=== PATIENT | female | born 1990 | race African-American/Black ===

== ENCOUNTER 2016-09-12 19:14 | Emergency (ER) | payer SELFPAY | END 2016-09-12 22:15 | disposition left against medical advice (07) | LOC: ER 19:14 | DX: Z53.21 Procedure and treatment not carried out due to patient leaving prior to being seen by health care provider (principal) ==

== ENCOUNTER 2016-09-18 12:18 | Emergency (ER) | payer MEDICAID ==
--- NOTE | 2016-09-18 13:19 | ER Document Report ---
ED Medical Screen (RME) - General Chief Complaint: Vag Bleeding, +preg <12wks Stated Complaint: CRAMPING Time Seen by Provider: 09/18/16 13:16 Notes: pt states she has been having intermittent vaginal spotting and abdominal cramping for the last month. Spotting is brownish red colored. Pt is currently , LMP 4-5-17. Also having vaginal discharge in between spotting. No fever. Has not been to OB yet, waiting on insurance. Pt states pain is lower mid abdomen radiating to left side. Denies dysuria. TRAVEL OUTSIDE OF THE [place] IN LAST 30 DAYS: No - Related Data Allergies/Adverse Reactions: No Known Allergies Allergy (Verified 09/18/16 12:21) Past Medical History - Past Medical History Cardiac Medical History: Reports: Hx Hypertension Renal/ Medical History: Denies: Hx Peritoneal Dialysis Past Surgical History: Reports: Hx Section - Immunizations Immunizations up to date: Yes Hx Diphtheria, Pertussis, Tetanus Vaccination: Yes Physical Exam - Vital signs Vitals: Temp Pulse Resp BP Pulse Ox 97.9 F 92 16 119/60 100 09/18/16 12:26 09/18/16 12:26 09/18/16 12:26 09/18/16 12:26 09/18/16 12:26 Course - Vital Signs Vital signs: Temp Pulse Resp BP Pulse Ox 97.9 F 92 16 119/60 100 09/18/16 12:26 09/18/16 12:26 09/18/16 12:26 09/18/16 12:26 09/18/16 12:26
[2016-09-18 13:54] LABS: ABSOLUTE EOSINOPHILS # (AUTO) 0.1 10^3/uL (0.0-0.6); ABSOLUTE LYMPHOCYTES (AUTO) 1.5 10^3/uL (0.5-4.7); ABSOLUTE MONOCYTES (AUTO) 0.3 10^3/uL (0.1-1.4); ABSOLUTE NEUT (AUTO) 4.8 10^3/uL (1.7-8.2); BASOPHILS % (AUTO) 0.6 % (0-2); EOSINOPHILS % (AUTO) 1.9 % (0-6); HEMATOCRIT 39.2 % (36.0-47.0); HEMOGLOBIN 13.1 g/dL (12.0-15.5); HGB HCT DIFFERENCE 0.1; LYMPHOCYTES % (AUTO) 22.5 % (13-45); MEAN CORPUSCULAR HEMOGLOBIN 33.1 pg (27.0-33.4); MEAN CORPUSCULAR HGB CONC 33.4 g/dL (32.0-36.0); MEAN CORPUSCULAR VOLUME 99 fl (80-97); RED BLOOD COUNT 3.95 10^6/uL (3.72-5.28); RED CELL DISTRIBUTION WIDTH 13.5 % (11.5-14.0); WHITE BLOOD COUNT 6.8 10^3/uL (4.0-10.5)
[2016-09-18 14:12] LABS: ALANINE AMINOTRANSFERASE 25 U/L (9-52); ALBUMIN 4.5 g/dL (3.5-5.0); ALKALINE PHOSPHATASE 57 U/L (38-126); ANION GAP 11 (5-19); ASPARTATE AMINO TRANSFERASE 21 U/L (14-36); BILIRUBIN,DIRECT 0.3 mg/dL (0.0-0.4); BILIRUBIN,TOTAL 0.5 mg/dL (0.2-1.3); BLOOD UREA NITROGEN 14 mg/dL (7-20); CALCIUM 10.2 mg/dL (8.4-10.2); CARBON DIOXIDE 23 mmol/L (22-30); CHLORIDE 103 mmol/L (98-107); CREATININE RESULT 0.67 mg/dL (0.52-1.25); GLUCOSE 75 mg/dL (75-110); POTASSIUM 4.9 mmol/L (3.6-5.0); SODIUM 136.9 mmol/L (137-145); TOTAL PROTEIN 7.5 g/dL (6.3-8.2)
[2016-09-18 14:17] LABS: APPEARANCE,URINE CLEAR; BILIRUBIN,URINE NEGATIVE (NEGATIVE); GLUCOSE, URINE NEGATIVE (NEGATIVE); KETONES,URINE NEGATIVE (NEGATIVE); LEUKOCYTE ESTERASE,URINE NEGATIVE (NEGATIVE); NITRITE,URINE NEGATIVE (NEGATIVE); PROTEIN,URINE NEGATIVE (NEGATIVE); URINE SPECIFIC GRAVITY 1.009; UROBILINOGEN,URINE NEGATIVE mg/dL (<2.0)
--- NOTE | 2016-09-18 15:07 | RADIOLOGY REPORT (SQ) ---
EXAM DESCRIPTION: U/S OB TRANSVAGINAL W/O DOP COMPLETED DATE/TIME: 09/18/2016 2:51 pm REASON FOR STUDY: + preg vag bleed COMPARISON: None. TECHNIQUE: Transvaginal static and realtime grayscale images acquired of the pelvis. Additional ashly cted spectral and color Doppler images recorded. All images stored on PACs. bHCG: Not available LIMITATIONS: None. FINDINGS: FETUS: Living intrauterine . EGA: 6 weeks 5 days AKASH: 05/09/2017 FHR: 126 beats per minute. SUBCHORIONIC BLEED: Yes SIZE OF BLEED: Small UTERUS: No masses. No anomalies. CERVICAL LENGTH: 3.1 cm Closed. RIGHT ADNEXA: Right ovary was not visualized. No adnexal free fluid. No adnexal masses. LEFT ADNEXA: Left ovary was not visualized. Small amount of free fluid is identified in the posterior cul-de-sac on the left No adnexal masses. FREE FLUID: Small amount of free fluid on the left OTHER: No other significant finding. IMPRESSION: LIVING INTRAUTERINE . EGA 6 weeks 5 days Trimester of : First - 0 to 13 weeks. TECHNICAL DOCUMENTATION: JOB ID: [id number] [employer]- All Rights Reserved
--- NOTE | 2016-09-18 15:34 | ER Document Report ---
ED General - General Chief Complaint: Vag Bleeding, +preg <12wks Stated Complaint: CRAMPING Time Seen by Provider: 09/18/16 13:16 Mode of Arrival: Ambulatory Information source: Patient Notes: 25-year-old female 2 para 1 who is approximately 2-3 weeks based on last measure. Presents with complaints of intermittent spotting. Patient denies any fevers or chills nausea vomiting or diarrhea patient is taking TRAVEL OUTSIDE OF THE [place] IN LAST 30 DAYS: No - HPI Onset: Last week Onset/Duration: Intermittent Quality of pain: Cramping Severity: Mild Pain Level: 1 Associated symptoms: None Exacerbated by: Denies Relieved by: Denies Similar symptoms previously: No Recently seen / treated by doctor: No - Related Data Allergies/Adverse Reactions: No Known Allergies Allergy (Verified 09/18/16 12:21) Past Medical History - General Last Menstrual Period: July - Social History Smoking Status: Never Smoker Cigarette use (# per day): No Chew tobacco use (# tins/day): No Smoking Education Provided: No Family History: Reviewed & Not Pertinent Patient has suicidal ideation: No Patient has homicidal ideation: No - Past Medical History Cardiac Medical History: Reports: Hx Hypertension Renal/ Medical History: Denies: Hx Peritoneal Dialysis Past Surgical History: Reports: Hx Section - Immunizations Immunizations up to date: Yes Hx Diphtheria, Pertussis, Tetanus Vaccination: Yes Review of Systems - Review of Systems Notes: PHYSICAL EXAMINATION: GENERAL: Well-appearing, well-nourished and in no acute distress. HEAD: Atraumatic, normocephalic. EYES: Pupils equal round and reactive to light, extraocular movements intact, conjunctiva are normal. ENT: Nares patent, oropharynx clear without exudates. Moist mucous membranes. NECK: Normal range of motion, supple without lymphadenopathy LUNGS: Breath sounds clear to auscultation bilaterally and equal. No wheezes rales or rhonchi. HEART: Regular rate and rhythm without murmurs ABDOMEN: Soft, nontender, nondistended abdomen. No guarding, no rebound. No masses appreciated. Female : deferred Musculoskeletal: Normal range of motion, no pitting or edema. No cyanosis. NEUROLOGICAL: Cranial nerves grossly intact. Normal speech, normal gait. Normal sensory, motor exams PSYCH: Normal mood, normal affect. SKIN: Warm, Dry, normal turgor, no rashes or lesions noted. Physical Exam - Vital signs Vitals: Temp Pulse Resp BP Pulse Ox 97.9 F 92 16 119/60 100 09/18/16 12:26 09/18/16 12:09/18/16 12:09/18/16 12:09/18/16 12:26 Course - Re-evaluation Re-evalutation: 09/18/16 15:45 Ultrasound noted a viable intrauterine , report was given to patient. Her blood type is O+. Otherwise patient looks well will be discharged to follow -up with CHANNEL DIRECTOR After performing a Medical Screening Examination, I estimate there is LOW risk for ACUTE APPENDICITIS, BOWEL OBSTRUCTION, ACUTE CHOLECYSTITIS, PERFORATED DIVERTICULITIS, INCARCERATED HERNIA, PANCREATITIS, PELVIC INFLAMMATORY DISEASE, PERFORATED ULCER, ECTOPIC , or TUBO-OVARIAN ABSCESS, thus I consider the discharge disposition reasonable. Also, there is no evidence or peritonitis , sepsis, or toxicity. I have reevaluated this patient multiple times and no significant life threatening changes are noted. The patient and I have discussed the diagnosis and risks, and we agree with discharging home with close follow-up with the understanding that symptoms and presentations can change. We also discussed returning to the Emergency Department immediately if new or worsening symptoms occur. We have discussed the symptoms which are most concerning (e.g., bloody stool, fever, changing or worsening pain, vomiting) that necessitate immediate return. - Vital Signs Vital signs: Temp Pulse Resp BP Pulse Ox 97.9 F 92 16 119/60 100 09/18/16 12:26 09/18/16 12:26 09/18/16 12:09/18/16 12:09/18/16 12:26 - Laboratory Result Diagrams: 09/18/16 13:32 09/18/16 13:32 Laboratory results interpreted by me: 09/18/16 09/18/16 13:32 13:32 MCV 99 H Sodium 136.9 L Beta HCG, Quant 43952.00 H - Diagnostic Test Radiology reviewed: Image reviewed, Reports reviewed - Intrauterine Discharge - Discharge Clinical Impression: Bleeding in early , Threatened miscarriage in early Condition: Stable Disposition: HOME, SELF-CARE Instructions: Threatened Miscarriage ([facility]) Prescriptions: Promethazine HCl [Phenergan 25 mg Tablet] 1 - 2 tab PO Q6H PRN #15 tablet PRN Reason: Referrals: [facility] [Provider Group] - Follow up in 3-5 days
[2016-09-18 16:27] VITALS: BP 111/65
== END 2016-09-18 16:19 | disposition home or self-care (01) ==
LOC: ER 12:18
DX: O20.0 Threatened abortion (principal); O16.9 Unspecified maternal hypertension, unspecified trimester; Z3A.00 Weeks of gestation of pregnancy not specified; Z79.899 Other long term (current) drug therapy
CPT/HCPCS: 36415; 76817; 80053; 81001; 84702; 85025; 86900; 86901; 99284

== ENCOUNTER 2017-02-09 11:17 | Outpatient (CLI) | payer MEDICAID ==
[2017-02-09 12:00] LABS: AMORPHOUS SEDIMENT,URINE TRACE /HPF; APPEARANCE,URINE CLEAR; BILIRUBIN,URINE NEGATIVE (NEGATIVE); GLUCOSE, URINE NEGATIVE (NEGATIVE); KETONES,URINE NEGATIVE (NEGATIVE); LEUKOCYTE ESTERASE,URINE NEGATIVE (NEGATIVE); NITRITE,URINE NEGATIVE (NEGATIVE); PROTEIN,URINE NEGATIVE (NEGATIVE); URINE SPECIFIC GRAVITY 1.008; UROBILINOGEN,URINE NEGATIVE mg/dL (<2.0)
[2017-02-09 12:07] LABS: URINE BARBITURATES SCREEN NEGATIVE; URINE METHADONE SCREEN NEGATIVE; URINE OPIATES LOW NEGATIVE; URINE PHENCYCLIDINE SCREEN NEGATIVE
== END 2017-02-09 14:19 | disposition home or self-care (01) ==
LOC: LC 11:17
PROVIDERS: ATTEND Obstetrics & Gynecology
PROC: 4A1HXCZ Monitoring of Products of Conception, Cardiac Rate, External Approach (ICD-10-PCS; principal; 2017-02-09)
DX: Z34.92 Encounter for supervision of normal pregnancy, unspecified, second trimester (principal); Z36.89 Encounter for other specified antenatal screening; Z3A.27 27 weeks gestation of pregnancy
CPT/HCPCS: 80307; 81001; 87210

== ENCOUNTER 2017-04-13 17:02 | Outpatient (CLI) | payer MEDICAID ==
[2017-04-13 18:11] LABS: APPEARANCE,URINE CLEAR; BILIRUBIN,URINE NEGATIVE (NEGATIVE); GLUCOSE, URINE NEGATIVE (NEGATIVE); KETONES,URINE NEGATIVE (NEGATIVE); LEUKOCYTE ESTERASE,URINE NEGATIVE (NEGATIVE); NITRITE,URINE NEGATIVE (NEGATIVE); PROTEIN,URINE NEGATIVE (NEGATIVE); URINE SPECIFIC GRAVITY 1.009; UROBILINOGEN,URINE NEGATIVE mg/dL (<2.0)
[2017-04-13 18:15] LABS: AMNISURE (ROM) NEGATIVE (NEGATIVE)
[2017-04-13 18:27] LABS: URINE BARBITURATES SCREEN NEGATIVE; URINE METHADONE SCREEN NEGATIVE; URINE OPIATES LOW NEGATIVE; URINE PHENCYCLIDINE SCREEN NEGATIVE
--- NOTE | 2017-04-13 20:54 | RADIOLOGY REPORT (SQ) ---
EXAM DESCRIPTION: U/S PROFILE W/O STRESS COMPLETED DATE/TIME: 04/13/2017 8:43 pm REASON FOR STUDY: assess for reassuring status COMPARISON: None. TECHNIQUE: Limited guajardo-scale realtime and static images of the fetus to measure specified parameter s. LIMITATIONS: None. FINDINGS: HEART RATE: 145 beats per minute. AGA: 8.5 cm. BREATHING MOVEMENT: 0 points. MOVEMENT: 2 points. POSTURE AND TONE: 2 points. QUALITATIVE AGA: 2 points. OTHER: No other significant finding. IMPRESSION: BIOPHYSICAL PROFILE: 10/04 Trimester of : Third - 28 weeks to delivery COMMENT: BREATHING MOVEMENTS: 2 POINTS: PRESENT 0 POINTS: ABSENT MOTION: 2 POINTS: PRESENT 0 POINTS: ABSENT TONE: 2 POINTS: PRESENT 0 POINTS: ABSENT AMNIOTIC FLUID VOLUME: 2 POINTS: LARGEST POCKET GREATER THAN 2 CM DEPTH. 0 POINTS: NO POCKET OF 2 CM. TECHNICAL DOCUMENTATION: JOB ID: [id number] [employer]- All Rights Reserved
--- NOTE | 2017-04-13 21:18 | Non Stress Test Report ---
Non Stress Test Datetime Report Generated by CPN: 04/13/2017 21:17 DEMOGRAPHIC EGA NST: 36.3 INDICATION Indication for Study: Ordered by Provider MONITORING Monitor Explained: Monitor Explained; Test Explained; Patient Verbalized Understanding Time on Monitor: 04/13/2017 19:10 Time off Monitor: 04/13/2017 19:30 NST Duration: 20 NST INTERVENTIONS NST Interventions: PO Hydration; Reposition Patient Physician Notified NST: Dr. Montejo-Aden BABY A: [id number] BABY A Movement : Present Contraction Frequency : irregular FHR Baseline : 130 Accelerations : 15X15 Decelerations : None Variability : Moderate 6-25bpm NST Review: Meets Criteria for Reactive NST NST Review and Verified By : JUAN Mancera Results: Reactive NST REPORT Report Trigger: Send Report
== END 2017-04-13 21:17 | disposition home or self-care (01) ==
LOC: LC 17:02
PROVIDERS: ATTEND Obstetrics & Gynecology
PROC: 4A1HXCZ Monitoring of Products of Conception, Cardiac Rate, External Approach (ICD-10-PCS; principal; 2017-04-13)
DX: O47.03 False labor before 37 completed weeks of gestation, third trimester (principal); Z3A.36 36 weeks gestation of pregnancy
CPT/HCPCS: 59025; 76819; 80307; 81001; 84112

== ENCOUNTER 2017-04-25 10:44 | Inpatient (IN) | payer MEDICAID ==
[2017-04-25 11:20] LABS: APPEARANCE,URINE CLEAR; BILIRUBIN,URINE NEGATIVE (NEGATIVE); COLOR,URINE YELLOW; GLUCOSE, URINE NEGATIVE (NEGATIVE); KETONES,URINE NEGATIVE (NEGATIVE); LEUKOCYTE ESTERASE,URINE NEGATIVE (NEGATIVE); NITRITE,URINE NEGATIVE (NEGATIVE); PROTEIN,URINE NEGATIVE (NEGATIVE); URINE SPECIFIC GRAVITY 1.008; UROBILINOGEN,URINE NEGATIVE mg/dL (<2.0)
[2017-04-25 11:32] LABS: ABSOLUTE EOSINOPHILS # (AUTO) 0.2 10^3/uL (0.0-0.6); ABSOLUTE LYMPHOCYTES (AUTO) 1.6 10^3/uL (0.5-4.7); ABSOLUTE MONOCYTES (AUTO) 0.5 10^3/uL (0.1-1.4); BASOPHILS % (AUTO) 0.5 % (0-2); EOSINOPHILS % (AUTO) 2.6 % (0-6); HEMATOCRIT 29.3 % (36.0-47.0); HEMOGLOBIN 9.8 g/dL (12.0-15.5); LYMPHOCYTES % (AUTO) 21.7 % (13-45); MEAN CORPUSCULAR HEMOGLOBIN 30.4 pg (27.0-33.4); MEAN CORPUSCULAR HGB CONC 33.5 g/dL (32.0-36.0); MEAN CORPUSCULAR VOLUME 91 fl (80-97); MONOCYTES % (AUTO) 6.9 % (3-13); PLATELET COUNT 220 10^3/uL (150-450); RED BLOOD COUNT 3.22 10^6/uL (3.72-5.28); RED CELL DISTRIBUTION WIDTH 15.1 % (11.5-14.0); SEGMENTED NEUTROPHILS % (AUTO) 68.3 % (42-78); TOTAL CELLS COUNTED % (AUTO) 100 %; WHITE BLOOD COUNT 7.4 10^3/uL (4.0-10.5)
[2017-04-25 11:35] LABS: URINE AMPHETAMINES SCREEN NEGATIVE; URINE BARBITURATES SCREEN NEGATIVE; URINE BENZODIAZEPINES SCREEN NEGATIVE; URINE COCAINE SCREEN NEGATIVE; URINE MARIJUANA (THC) SCREEN NEGATIVE; URINE METHADONE SCREEN NEGATIVE; URINE PHENCYCLIDINE SCREEN NEGATIVE
[2017-04-25 11:36] LABS: UR PRO/CREAT RATIO RESULT 0.1 mg/mg (0.0-0.2); URINE CREATININE 103.5 mg/dL (16-327); URINE PROTEIN 10.8 mg/dL (<12)
[2017-04-25 11:54] LABS: ALANINE AMINOTRANSFERASE 25 U/L (9-52); ALBUMIN 3.1 g/dL (3.5-5.0); ALKALINE PHOSPHATASE 157 U/L (38-126); ANION GAP 7 (5-19); ASPARTATE AMINO TRANSFERASE 25 U/L (14-36); BILIRUBIN,DIRECT 0.1 mg/dL (0.0-0.4); BILIRUBIN,TOTAL 0.3 mg/dL (0.2-1.3); BLOOD UREA NITROGEN 3 mg/dL (7-20); CALCIUM 9.4 mg/dL (8.4-10.2); CARBON DIOXIDE 22 mmol/L (22-30); CHLORIDE 110 mmol/L (98-107); GLUCOSE 80 mg/dL (75-110); LDH 430 U/L (313-618); POTASSIUM 3.8 mmol/L (3.6-5.0); TOTAL PROTEIN 5.6 g/dL (6.3-8.2); URIC ACID 5.3 mg/dL (2.5-6.2)
[2017-04-25] MEDS ORDERED: RINGERS SOLUTION,LACTATED 1,000 ML IV ONE (14:00)
[2017-04-25] MEDS ORDERED: RINGERS SOLUTION,LACTATED 1,000 ML IV PRN ×2 (14:00→19:22)
[2017-04-25] MEDS ORDERED: CEFAZOLIN SODIUM 2 GM in DEXTROSE 5%-WATER 50 ML IV PRN (14:53)
[2017-04-25] MEDS ORDERED: CEFAZOLIN 1 GM/D5W RTU 2 GM/100 ML RTUPB IV ONE (15:08)
[2017-04-25] MEDS ORDERED: CITRIC ACID/SODIUM CITRATE ORAL SOLN 15 ML UDCUP ONE (15:08)
[2017-04-25] MEDS ORDERED: CEFAZOLIN INJ 1 GM VIAL ONE (17:50)
[2017-04-25] MEDS ORDERED: OXYTOCIN 10 UNIT/ML VIAL ONE (18:12)
[2017-04-25] MEDS ORDERED: OXYTOCIN/NORMAL SALINE 20 UNIT/1,000 ML RTUINJ ONE (18:13)
[2017-04-25] MEDS ORDERED: EPHEDRINE SULFATE INJ 50 MG/1 ML AMPULE ONE (18:13)
[2017-04-25] MEDS ORDERED: METHYLERGONOVINE MALEATE INJ/PF 0.2 MG/1 ML AMPULE ONE (18:13)
[2017-04-25] MEDS ORDERED: MORPHINE SULFATE 10 MG/ML INJ IV PRN (18:38)
[2017-04-25] MEDS ORDERED: FENTANYL CITRATE INJ/PF 100 MCG/2 ML AMPUL IV PRN ×3 (18:38)
[2017-04-25] MEDS ORDERED: ONDANSETRON HCL INJ/PF 4 MG/2 ML SDV IV PRN (18:38)
[2017-04-25] MEDS ORDERED: MEPERIDINE HCL/PF INJ 25 MG/1 ML DISP.SYRIN IV PRN (18:38)
[2017-04-25] MEDS ORDERED: OXYCODONE-ACETAMINOPHEN 5-325 MG TABLET PO PRN ×3 (18:38→19:22)
[2017-04-25] MEDS ORDERED: PROMETHAZINE HCL INJ 25 MG/1 ML VIAL IV PRN ×2 (18:38)
[2017-04-25] MEDS ORDERED: DIPHENHYDRAMINE HCL 50 MG/ML VIAL IV PRN (18:38)
[2017-04-25] MEDS ORDERED: MIDAZOLAM 2 MG/2 ML INJ ONE (18:41)
[2017-04-25] MEDS ORDERED: KETOROLAC TROMETHAMINE 60 MG/2 ML SDV ONE (18:48)
[2017-04-25] MEDS ORDERED: DIPH/PERTUSS(ACELL)/TETANUS VAC/PF 0.5 ML SYR (>=10YO) IM PRN (19:22)
[2017-04-25] MEDS ORDERED: ACETAMINOPHEN 325 MG TABLET PO PRN (19:22)
[2017-04-25] MEDS ORDERED: ACETAMINOPHEN 100 ML IV PRN (19:22)
[2017-04-25] MEDS ORDERED: OXYTOCIN/NORMAL SALINE 20 UNIT/1,000 ML RTUINJ IV PRN (19:22)
[2017-04-25] MEDS ORDERED: HYDROMORPHONE HCL INJ/PF 2 MG/ML AMPULE IV PRN (19:22)
[2017-04-25] MEDS ORDERED: SIMETHICONE 80 MG TAB.CHEW PO PRN (19:22)
[2017-04-25] MEDS ORDERED: MEASLES,MUMPS&RUBELLA VACC/PF 0.5 ML VIAL SUBCUT PRN (19:22)
--- NOTE | 2017-04-25 19:32 | Operative Report ---
Operative Report DATE OF SURGERY: 04/25/17 PREOPERATIVE DIAGNOSIS: Mild preeclampsia repeat section and desires tubal ligation POSTOPERATIVE DIAGNOSIS: Same OPERATION: Repeat via low transverse uterine incision and bilateral tubal ligation with Filshie clips SURGEON: MICHELE PALACIOS ANESTHESIA: Spinal TISSUE REMOVED OR ALTERED: Placenta COMPLICATIONS: None ESTIMATED BLOOD LOSS: 250 cc INTRAOPERATIVE FINDINGS: Viable female Apgars 8 9 weight 7 pounds PROCEDURE: Patient was taken to the OR and placed in supine position after her spinal anesthesia. She is prepared and draped in sterile fashion. Alvarez was placed for drainage of the bladder. Low transverse incision was made and carried down the level of the fascia. The fascial incision was made with knife and extended bilaterally with curved Gonzalez scissors. The fascia was off the rectus muscles using sharp and blunt dissection. The rectus muscles are in the midline. The peritoneum was entered without incident. Bladder blade was placed in uterine segment was identified. A low transverse incision was made creating a bladder flap. Bladder blade was placed low transverse uterine incision was made with the c safe knife and extended with fingertips. The baby was delivered with some fundal pressure. Mouth and nose were suctioned free. The cord is doubly clamped and cut. Baby is passed off to the kickboxing instructor in attendance. The placenta was manually extracted with trailing membranes. The uterus was adhesed to the anterior abdominal wall and the dense adhesions were lysed allowing the uterus to be brought out of the abdomen. The uterus was externalized wrapped in a moist lap sponge. Uterine contents wiped free. Uterus was closed with a running locking layer of 0 chromic suture using the second layer to imbricate the first completing a double layer closure of the uterus. The serosa was closed with a running 2-0 chromic stitch. Filshie clips were placed across the mid isthmic portion of each fallopian tube bilaterally after first following them out to their fimbriated ends. The thin tubal adhesions were also lysed with Metzenbaum scissors. The uterus was replaced into the abdomen. The abdominal wall peritoneum was closed with a 2-0 chromic stitch in a running fashion. Fascia was closed with a running 0 Vicryl in 2 segments. Ally's layer was brought together with 0 plain gut stitch and the skin was closed with running subcuticular 4-0 undyed Vicryl stitch. The wound was dressed mother and baby did well.
[2017-04-25] MEDS ORDERED: FENTANYL CITRATE INJ/PF 100 MCG/2 ML AMPUL ONE (19:36)
[2017-04-25] MEDS ORDERED: ACETAMINOPHEN 100 ML IV ONE (20:06)
[2017-04-25] MEDS ORDERED: ONDANSETRON HCL INJ/PF 4 MG/2 ML SDV ONE (20:24)
[2017-04-25] MEDS ORDERED: HYDROMORPHONE HCL INJ/PF 2 MG/ML AMPULE ONE ×2 (21:16→21:18)
[2017-04-25] MEDS ORDERED: LABETALOL HCL 200 MG TABLET ONE (21:28)
--- NOTE | 2017-04-25 21:45 | Delivery Summary ---
Del Sum A-C Datetime Report Generated by CPN: 04/25/2017 21:44 DELIVERY PERSONNEL DELIVERY PERSONNEL: [id number] Delivery Doctor:: Macrina William MD Anesthesiologist:: Nino Quevedo MD JAVA FLEX DEVELOPER:: Nataliia HUGHES CRNA Labor and Delivery Nurse:: Sheri Swartz RNtechnical publications writer Nurse:: Nimisha Kelly RN Proposal Specialist:: Dr. David Suntal Nursery Nurse:: Pat Gonzáles RN Modeling Manager/GLASS FURNACE OPERATOR: ST Gustavo Modeling Manager/GLASS FURNACE OPERATOR: Pat Og, NIGHT COORDINATOR MATERNAL INFORMATION Delivery Anesthesia: Spinal Medications After Delivery: Pitocin Bolus-Please Comment; Pitocin Drip 20 Units/1000ml NSS Maternal Complications: None LABOR SUMMARY EDC: 05/08/2017 00:00 No. Babies in Womb: 1 Attempted: No Labor Anesthesia: None LABOR INFORMATION Reason for Induction: Not Applicable Oxytocin: N/A Group B Beta Strep: NEGATIVE Antibiotics # of Doses: 0 Steroids Given: None Reason Steroids Not Administered: Not Applicable MEMBRANES Membranes Rupture Method: Artificial Rupture of Membranes: 04/25/2017 18:35 Length of Rupture (hr): 0.02 Amniotic Fluid Color: Clear Amniotic Fluid Amount: Small Amniotic Fluid Odor: Normal STAGES OF LABOR Stage 3 hr: 0 Stage 3 min: 1 VAGINAL DELIVERY Episiotomy: None Laceration #1: None Laceration Extension #1: N/A Laceration Repair: Not Applicable CSECTION DELIVERY Primary Indication: Repeat Elective Other Primary Indication: GHTN CSection Urgency: Non-Scheduled CSection Incidence: Repeat Labor: No Labor Elective: Nonelective CSection Incision: Lower Uterine Transverse BABY A INFORMATION Infant Delivery Date/Time: 04/25/2017 18:36 Method of Delivery: Born in Route : No : N/A Forceps: N/A Vacuum Extraction: N/A Shoulder Dystocia : No PRESENTATION/POSITION BABY A Presentation: Cephalic Cephalic Presentation: Vertex Breech Presentation: N/A PLACENTA INFORMATION BABY A Placenta Delivery Time : 04/25/2017 18:37 Placenta Method of Delivery: Manual Removal Placenta Status: Delivered SCORES BABY A Heart Rate 1 min: >100 bpm Resp Effort 1 min: Good Cry Reflex Irritability 1 min: Cough or Sneeze or Pulls Away Muscle Tone 1 min: Active Motion Color 1 min: Blue/Pale SCORE 1 MIN: 8 Heart Rate 5 min: >100 bpm Resp Effort 5 min: Good Cry Reflex Irritability 5 min: Cough or Sneeze or Pulls Away Muscle Tone 5 min: Active Motion Color 5 min: Body [place], Extremities Blue SCORE 5 MIN: 9 INFANT INFORMATION BABY A Gestational Age at Delivery: 38.1 Gestational Status: Early Term- 37- 38.6 Weeks Outcome : Liveborn Infant Condition : Stable Infant Sex: Female IDENTIFICATION BABY A Verification Date/Time: 04/25/2017 18:37 ID Band Number: [id number] Mother's Name Verified: Yes RN Verifying : A Kelly RN N Swartz RN WEIGHT/LENGTH BABY A Infant Birthweight (gm): 3175 Infant Weight (lb): 7 Weight (oz): 0 Infant Length (in): 19.00 Infant Length (cm): 48.26 CORD INFORMATION BABY A No. Cord Vessels: 3 Nuchal Cord : N/A Cord Blood Taken: Yes-For Eval (Mom's Blood Type - or O+) ASSESSMENT BABY A Infant Complications: None Skin to Skin: No BABY B INFORMATION : N/A SIGNATURES : I was personally available for consultation and serving as supervising physician for the MLP.
--- NOTE | 2017-04-25 22:00 | Admission Physical ---
Datetime Report Generated by CPN: 04/25/2017 21:59 CURRENT ADMISSION Chief Complaint: Sent from OB Office for Evaluation and Treatment - Please Specify Chief Complaint Other: elevated BP Indication for Induction: Not Applicable Indication for Induction: Term, Intrauterine Admit Impression- Other: hypertension with severe range BP at office today Admit Plan: Admit to Unit; Initiate Section Protocol ALLERGIES Medication Allergies: No Medication Allergies: No Known Allergies (04/25/2017) Medication Allergies: No Known Allergies (02/09/2017) Medication Allergies: No Known Allergies (09/18/2016) Latex: No Latex Allergies Food Allergies: None Environmental Allergies: None OBSTETRICAL HISTORY EDC: 05/08/2017 00:00 : 2 Para: 1 Term: 1 : 0 SAB: 0 IAB: 0 Ectopic: 0 Livin Cesareans: 0 VBACs: 0 Multiple Births: 0 Gestational Diabetes: No Rh Sensitization: No Incompetent Cervix: No KORI: No Infertility: No ART Treatment: No Uterine Anomaly: No IUGR: No Hx Previous C/S: No Macrosomia: No Hx Loss/Stillborn: No PIH: Yes Placenta Previa/Abruption: No Depression/PP Depression: No PTL/PROM: No Post Hemorrhage: No Current Procedures: Ultrasound Obstetrical History Comments: G1- 2014 high blood pressure, primary c/s due to unreassuring FHT G2- Current SEE RECORDS Alcohol: No Marijuana : No Cocaine: No Other Illicit Drugs: No Cigarettes: Never Smoker. [id number] MEDICAL HISTORY Diabetes: No Blood Transfusion: No Pulmonary Disease (Asthma, TB): No Breast Disease: No Hypertension: No Esl Tutor Surgery: Yes Heart Disease: No Hosp/Surgery: Yes Autoimmune Disorder: No Anesthetic Complications: No Kidney Disease: No Abnormal Pap Smear: Yes Neuro/Epilepsy: No Psychiatric Disorders: No Other Medical Diseases: No Hepatitis/Liver Disease: No Significant Family History: No Varicosities/Phlebitis: No Trauma/Violence : No Thyroid Dysfunction: No Medical History Comments: Prior c/s 2014 HPV INFECTIOUS HISTORY Gonorrhea: No Genital Herpes: No Chlamydia: Yes Tuberculosis: No Syphilis: No Hepatitis: No HIV/AIDS Exposure: No Rash or Viral Illness: No HPV: Yes Infectious History Comments: 2013 Chlamydia 2013 HPV PHYSICAL EXAM General: Normal HEENT: Normal Neurologic: Normal Thyroid: Deferred Heart: Normal Lungs: Normal Breast: Deferred Back: Normal Abdomen: Normal Genitourinary Exam: Deferred Extremities: Normal DTRs: Deferred Pelvic Type: Not Done Vital Signs: Reviewed Details Vital Signs: hypertension with intermittent severe range BPs VAGINAL EXAM Dilatation: ft Contraction Comments: irreg FETUS A EGA: 38.1 Monitoring: External US FHR- Baseline: 135 Variability: Minimal - Undetectable to <=5bpm Accelerations: 15X15 Decelerations: Variable Estimated Weight (gm): 3700 Admit Comment: with previous c/s, sent from office by MEGHAN Mcintosh for high BP, having rare contractions. consented for repeat C/S PLANS FOR LABOR AND DELIVERY Labor and Delivery: None Pain Management: Spinal Feeding Preference: Formula Benefit of Breast Feed Discussed: Yes Circumcision: N/A INFORMED CONSENT Assignment: Macrina William MD Signature: with User ID: [email or web address] : with User ID: [email or web address]
[2017-04-25] MEDS ORDERED: DIPHENHYDRAMINE HCL 25 MG CAPSULE ONE (23:02)
[2017-04-25] MEDS ORDERED: DIPHENHYDRAMINE HCL 25 MG CAPSULE PO PRN (23:51)
[2017-04-26] MEDS: PROMETHAZINE HCL INJ 25 MG/1 ML VIAL IV PRN ×2 (00:10→08:33)
[2017-04-26] MEDS: OXYCODONE-ACETAMINOPHEN 5-325 MG TABLET PO PRN ×3 (04:20→19:40)
[2017-04-26] MEDS: KETOROLAC TROMETHAMINE INJ/PF 30 MG/1 ML SDV IV SCH ×3 (05:59→13:22)
[2017-04-26 07:38] LABS: HEMATOCRIT 26.3 % (36.0-47.0); HEMOGLOBIN 8.8 g/dL (12.0-15.5); MEAN CORPUSCULAR HEMOGLOBIN 30.7 pg (27.0-33.4); MEAN CORPUSCULAR HGB CONC 33.4 g/dL (32.0-36.0); MEAN CORPUSCULAR VOLUME 92 fl (80-97); PLATELET COUNT 160 10^3/uL (150-450); RED BLOOD COUNT 2.86 10^6/uL (3.72-5.28)
[2017-04-26] MEDS: LABETALOL HCL 200 MG TABLET PO SCH ×2 (09:57→21:09)
[2017-04-26] MEDS: DOCUSATE SODIUM 100 MG CAPSULE PO SCH ×2 (09:57→18:22)
[2017-04-26] MEDS: PRENATAL VITAMIN W DHA CAPSULE PO SCH (09:57)
[2017-04-26] MEDS ORDERED: FERROUS SULFATE 325 MG TABLET PO ONE (11:00)
[2017-04-26] MEDS: FERROUS SULFATE 325 MG TABLET PO SCH (18:22)
[2017-04-26] MEDS: IBUPROFEN 800 MG TABLET PO SCH ×2 (18:22→23:45)
--- NOTE | 2017-04-26 18:49 | PDOC PROGRESS REPORT ---
Subjective-OB Subjective: Post Delivery Day:1 26 year old G3 now P2 s/p RLTCS & BTL. Ambulating, voiding and without difficulty. Denies any needs at this time Physical Exam (OB) Vital Signs: Temp Pulse Resp BP Pulse Ox 98.3 F 86 16 134/76 H 97 04/26/17 07:42 04/26/17 07:42 04/26/17 07:42 04/26/17 07:42 04/26/17 07:42 Intake & Output 04/25/17 04/26/17 04/27/17 06:59 06:59 06:59 Intake Total 1580 Output Total 1450 Balance 130 Weight 83 kg - General General Appearance: Appears well In distress: None - PIH/Pre-Eclampsia DTR's: 2 + Clonus: Negative Headache: Absent Epigastric Pain: No Visual Changes: No - Dressing Removed: No - opsite with scant amount of shadow drainage midline Incision: Dressing - Bilateral Tubal Ligation Dressing Removed: No - Lochia Lochia Amount: Scant < 10 ml Lochia Color: Rubra/Red - Abdomen Description: Tender, Soft, Round Hernia Present: No Fundal Description: Firm, Midline Fundal Height: u/u - u/2 - Respiratory Respiratory Status: No respiratory distress - Extremities Upper extremity: Normal inspection Lower extremities: Normal inspection - Neurological Cognition: Normal Orientation: AAOx4 - Psychological Associated symptoms: Normal affect, Normal mood Objective-Diagnostic Laboratory: 04/26/17 07:09 04/25/17 11:13 04/25/17 04/25/17 04/25/17 10:55 11:13 11:13 WBC 7.4 RBC 3.22 L Hgb 9.8 L Hct 29.3 L MCV 91 MCH 30.4 MCHC 33.5 RDW 15.1 H Plt Count 220 Seg Neutrophils % 68.3 Lymphocytes % 21.7 Monocytes % 6.9 Eosinophils % 2.6 Basophils % 0.5 Absolute Neutrophils 5.0 Absolute Lymphocytes 1.6 Absolute Monocytes 0.5 Absolute Eosinophils 0.2 Absolute Basophils 0.0 Sodium 139.0 Potassium 3.8 Chloride 110 H Carbon Dioxide 22 Anion Gap 7 BUN 3 L Creatinine 0.64 Est GFR ( Amer) > 60 Est GFR (Non-Af Amer) > 60 Glucose 80 Uric Acid 5.3 Calcium 9.4 Total Bilirubin 0.3 AST 25 ALT 25 Alkaline Phosphatase 157 H Total Protein 5.6 L Albumin 3.1 L Urine Color YELLOW Urine Appearance CLEAR Urine pH 7.0 Ur Specific [place] 1.008 Urine Protein NEGATIVE Urine Glucose (UA) NEGATIVE Urine Ketones NEGATIVE Urine Blood NEGATIVE Urine Nitrite NEGATIVE Ur Leukocyte Esterase NEGATIVE Urine WBC (Auto) 1 Urine RBC (Auto) 0 Blood Type Antibody Screen 04/25/17 04/26/17 11:13 07:09 WBC 8.0 RBC 2.86 L Hgb 8.8 L Hct 26.3 L MCV 92 MCH 30.7 MCHC 33.4 RDW 15.0 H Plt Count 160 Seg Neutrophils % Lymphocytes % Monocytes % Eosinophils % Basophils % Absolute Neutrophils Absolute Lymphocytes Absolute Monocytes Absolute Eosinophils Absolute Basophils Sodium Potassium Chloride Carbon Dioxide Anion Gap BUN Creatinine Est GFR ( Amer) Est GFR (Non-Af Amer) Glucose Uric Acid Calcium Total Bilirubin AST ALT Alkaline Phosphatase Total Protein Albumin Urine Color Urine Appearance Urine pH Ur Specific [place] Urine Protein Urine Glucose (UA) Urine Ketones Urine Blood Urine Nitrite Ur Leukocyte Esterase Urine WBC (Auto) Urine RBC (Auto) Blood Type O POSITIVE Antibody Screen NEGATIVE Assessment and Plan(PN) - Assessment and Plan (1) Status post repeat low transverse section Is this a current diagnosis for this admission?: Yes Plan: routine pp care (2) Tubal ligation status Is this a current diagnosis for this admission?: Yes Plan: routine pp care (3) Anemia complicating , third trimester Is this a current diagnosis for this admission?: Yes Plan: increase dietary iron and feso4 BID. (4) Gestational hypertension Qualifiers: Trimester: unspecified trimester Qualified Code(s): O13.9 - Gestational [ -induced] hypertension without significant proteinuria, unspecified trimester Is this a current diagnosis for this admission?: Yes Plan: continue to monitor for s/s of pre-e. - Time Spent with Patient Time with patient: 15-25 minutes Medications reviewed and adjusted accordingly: Yes - Disposition Anticipated Discharge: Home Within: within 24 hours
[2017-04-27] MEDS: OXYCODONE-ACETAMINOPHEN 5-325 MG TABLET PO PRN ×2 (02:18→08:02)
[2017-04-27] MEDS: IBUPROFEN 800 MG TABLET PO SCH ×2 (06:45→11:32)
--- NOTE | 2017-04-27 09:11 | PDOC PROGRESS REPORT ---
Subjective-OB Subjective: Post Delivery Day: 26 year old. Denies any needs at this time Doing well,, pain under control, sitting on side of bed, hsb at bedside, bottle feeding, scant bleeding, asking home instructions Physical Exam (OB) Vital Signs: Temp Pulse Resp BP Pulse Ox 98.0 F 96 16 148/83 H 99 04/27/17 08:35 04/27/17 08:35 04/27/17 08:35 04/27/17 08:35 04/27/17 08:35 Intake & Output 04/26/17 04/27/17 04/28/17 06:59 06:59 06:59 Intake Total 1580 1295 Output Total 1450 Balance 130 1295 Weight 83 kg - PIH/Pre-Eclampsia DTR's: 1 + Clonus: Negative Headache: Absent Epigastric Pain: No Visual Changes: No - Dressing Removed: No - optsite moist under tegaderm. Incision: Dressing Closure Type: Surgical Glue - Bilateral Tubal Ligation Dressing Removed: No - Lochia Lochia Amount: Scant < 10 ml Lochia Color: Rubra/Red - Abdomen Description: Soft, Round Hernia Present: No Fundal Description: Firm, Midline Fundal Height: u/u - u/2 Objective-Diagnostic Laboratory: 04/26/17 07:09 04/25/17 11:13 Assessment and Plan(PN) - Assessment and Plan (1) Anemia Qualifiers: Anemia type: iron deficiency Is this a current diagnosis for this admission?: Yes (2) Status post repeat low transverse section Is this a current diagnosis for this admission?: Yes (3) Tubal ligation status Is this a current diagnosis for this admission?: Yes (4) Gestational hypertension Qualifiers: Trimester: unspecified trimester Qualified Code(s): O13.9 - Gestational [ -induced] hypertension without significant proteinuria, unspecified trimester Is this a current diagnosis for this admission?: Yes - Time Spent with Patient Time with patient: Less than 15 minutes Medications reviewed and adjusted accordingly: Yes - Disposition Anticipated Discharge: Home Within: Other - discharge home
--- NOTE | 2017-04-27 09:17 | PDOC DISCHARGE SUMMARY ---
Final Diagnosis Discharge Date: 04/27/17 - Final Diagnosis (1) Anemia Is this a current diagnosis for this admission?: Yes (2) Status post repeat low transverse section Is this a current diagnosis for this admission?: Yes (3) Tubal ligation status Is this a current diagnosis for this admission?: Yes (4) Gestational hypertension Is this a current diagnosis for this admission?: Yes Discharge Data - Discharge Medication Prescriptions: Oxycodone HCl/Acetaminophen [Percocet 5-325 mg Tablet] 1 tab PO Q4HP PRN #30 tablet PRN Reason: Docusate Sodium [Colace 100 mg Capsule] 100 mg PO BID #60 capsule Ferrous Sulfate [Feosol 325 mg Tablet] 325 mg PO BIDPCBS #60 tablet Ibuprofen [Motrin 800 mg Tablet] 800 mg PO Q6 #60 tablet Home Medications: Vits96/Iron Fum/Folic [ Tablet] 1 each PO DAILY 07/24/14 Docusate Sodium [Colace 100 mg Capsule] 100 mg PO BID #60 capsule 04/27/17 Ferrous Sulfate [Feosol 325 mg Tablet] 325 mg PO BIDPCBS #60 tablet 04/27/17 Ibuprofen [Motrin 800 mg Tablet] 800 mg PO Q6 #60 tablet 04/27/17 Oxycodone HCl/Acetaminophen [Percocet 5-325 mg Tablet] 1 tab PO Q4HP PRN #30 tablet 04/27/17 Gestational Age: 38.1 Reason(s) for Admission: Ceasarean Section-Repeat Procedures: NST, Ultrasound Intrapartum Procedure(s): : Low Cervical, Transverse - Data Baby 1 Female at 1 minute: 8 at 5 minutes: 9 Weight: 3.175 kg Home with Mother: Yes Complications: No - Diagnosis Test Laboratory: Temp Pulse Resp BP Pulse Ox 98.0 F 96 16 148/83 H 99 04/27/17 08:35 04/27/17 08:35 04/27/17 08:35 04/27/17 08:35 04/27/17 08:35 04/25/17 04/25/17 04/26/17 10:55 11:13 07:09 RBC 3.22 L 2.86 L Hgb 9.8 L 8.8 L Hct 29.3 L 26.3 L Urine Opiates Screen NEGATIVE - Discharge information/Instructions Discharge Activity: Keep Legs Elevated, No Lifting Over 10 Pounds, No Lifting/ Push/Pulling, Pelvic Rest Discharge Diet: As Tolerated, Regular Disposition: HOME, SELF-CARE Follow up with: [facility] in: 1, Weeks
[2017-04-27] MEDS: LABETALOL HCL 200 MG TABLET PO SCH (09:23)
[2017-04-27] MEDS: FERROUS SULFATE 325 MG TABLET PO SCH (09:24)
[2017-04-27] MEDS: PRENATAL VITAMIN W DHA CAPSULE PO SCH (10:11)
[2017-04-27] MEDS: DOCUSATE SODIUM 100 MG CAPSULE PO SCH (10:11)
[2017-04-27 10:23] VITALS: BP 131/68
== END 2017-04-27 13:05 | disposition home or self-care (01) | DRG 766 ==
LOC: LC 10:44 → LR 13:31 → 2N 21:58
PROVIDERS: ADMIT Obstetrics & Gynecology; ATTEND Obstetrics & Gynecology
PROC: 10D00Z1 Extraction of Products of Conception, Low, Open Approach (ICD-10-PCS; principal; 2017-04-25)
PROC: 0UL70CZ Occlusion of Bilateral Fallopian Tubes with Extraluminal Device, Open Approach (ICD-10-PCS; 2017-04-25)
PROC: 4A1HXCZ Monitoring of Products of Conception, Cardiac Rate, External Approach (ICD-10-PCS; 2017-04-25)
DX: O34.211 Maternal care for low transverse scar from previous cesarean delivery (principal); O13.4 Gestational [pregnancy-induced] hypertension without significant proteinuria, complicating childbirth; O99.02 Anemia complicating childbirth; D50.9 Iron deficiency anemia, unspecified; Z37.0 Single live birth; Z3A.38 38 weeks gestation of pregnancy; Z30.2 Encounter for sterilization
CPT/HCPCS: 1961; 36415; 59025; 80053; 80307; 81001; 82570; 83615; 84156; 84550; 85025; 85027; 86592; 86850; 86900; 86901; 94799; J0131; J0690; J1170; J1885; J2210; J2250; J2405; J2550; J2590; J3010; J3490; J7120

== ENCOUNTER 2018-04-26 21:03 | Observation (INO) | payer MEDICAID ==
--- NOTE | 2018-04-26 23:46 | RADIOLOGY REPORT (SQ) ---
EXAM DESCRIPTION: XR CHEST 1 VIEW COMPLETED DATE/TME: 04/26/2018 23:22 CLINICAL HISTORY: 27 years, Female, chest pain COMPARISON: None. NUMBER OF VIEWS: 1 TECHNIQUE: Frontal view chest LIMITATIONS: None. FINDINGS: Heart size is normal. Lungs are clear. No pneumothorax. IMPRESSION: Negative chest copyright 2010 [employer]- All Rights Reserved
[2018-04-27] MEDS ORDERED: ASPIRIN 81 MG TABLET, CHEWABLE PO ONE
[2018-04-27] MEDS ORDERED: HYDRALAZINE HCL INJ/PF 20 MG/1 ML SDV IV ONE ×2 (00:01→01:53)
--- NOTE | 2018-04-27 00:02 | ER Document Report ---
ED General - General Chief Complaint: Chest Pain Stated Complaint: CHEST PAIN Time Seen by Provider: 04/26/18 23:21 TRAVEL OUTSIDE OF THE [place] IN LAST 30 DAYS: No - HPI Notes: Patient is a 27-year-old female that presents to the emergency department for chief complaint of chest pain. Patient reports a chest tightness that has been intermittent for the last few days. She denies any associated nausea vomiting diaphoresis. She does states she has some shortness of breath. Patient states her mother started having heart attacks when she was in her 30s. She does smoke tobacco daily. She has a history of hypertension and has been off blood pressure medication for the last year. She denies any recent surgery travel or immobilization. She is not on any estrogens. Past Medical History: Preeclampsia, hypertension Past Surgical History: Tubal ligation Social History: Daily tobacco. Denies drug use Family History: Reviewed and noncontributory for presenting illness Allergies: Reviewed, see documented allergy list. REVIEW OF SYSTEMS: CONSTITUTIONAL : No fever No chills No diaphoresis No recent illness EENT: No vision changes No congestion No sore throat CARDIOVASCULAR: chest pain No palpitations RESPIRATORY: shortness of breath No cough No difficulty breathing GASTROINTESTINAL: No abdominal pain No nausea No vomiting No diarrhea GENITOURINARY: No dysuria No hematuria No difficulty urinating MUSCULOSKELETAL: No back pain No leg pain No arm pain SKIN: No rashes No lesions LYMPHATIC: No swollen, enlarged glands. NEUROLOGICAL: No lightheadedness No headache No weakness No paresthesias PSYCHIATRIC: No anxiety No depression PHYSICAL EXAMINATION: Vital signs reviewed, nursing noted reviewed. GENERAL: Well-appearing, well-nourished and in no acute distress. HEAD: Atraumatic, normocephalic. EYES: Eyes appear normal, extraocular movements intact, sclera anicteric, conjunctiva are normal. ENT: nares patent, oropharynx clear without exudates. Moist mucous membranes. NECK: Normal range of motion, supple without lymphadenopathy LUNGS: Mild diffuse wheezing, no tachypnea, no accessory muscle use. HEART: Regular rate and rhythm without murmurs ABDOMEN: Soft, nontender, normoactive bowel sounds. No rebound, guarding, or rigidity. No masses appreciated. EXTREMITIES: Nontender, good range of motion, no pitting or edema. NEUROLOGICAL: No focal neurological deficits. Moves all extremities spontaneously Motor and sensory grossly intact on exam. PSYCH: Normal mood, normal affect. SKIN: Warm, Dry, normal turgor, no rashes or lesions noted on exposed skin - Related Data Allergies/Adverse Reactions: No Known Allergies Allergy (Verified 04/25/17 15:57) Past Medical History - Social History Smoking Status: Current Every Day Smoker Chew tobacco use (# tins/day): No Frequency of alcohol use: Occasional Drug Abuse: None Family History: Reviewed & Not Pertinent Patient has suicidal ideation: No Patient has homicidal ideation: No - Past Medical History Cardiac Medical History: Reports: Hx Hypertension Renal/ Medical History: Denies: Hx Peritoneal Dialysis Psychiatric Medical History: Reports: Hx Depression Past Surgical History: Reports: Hx Section, Hx Tubal Ligation - Immunizations Immunizations up to date: Yes Hx Diphtheria, Pertussis, Tetanus Vaccination: Yes Physical Exam - Vital signs Vitals: Temp Pulse BP Pulse Ox 98.4 F 88 160/124 H 98 04/26/18 22:19 04/26/18 22:19 04/26/18 22:19 04/26/18 22:19 Course - Re-evaluation Re-evalutation: 04/27/18 00:00 Vitals reviewed. Nursing notes reviewed. Patient is currently stable. She has a significantly elevated blood pressure and some nonspecific T wave abnormalities on EKG. Blood work will be ordered to evaluate for end organ damage. Patient was given aspirin for her chest pain. 04/27/18 02:17 Patient reevaluated and is now appearing very anxious. She is tearful and states this feels like her panic attacks. She will be given a half a milligram of Ativan for her anxiety. She has required 2 doses of IV blood pressure medication for her hypertensive urgency. Patient's EKG changes are likely related to her uncontrolled hypertension. She has no signs of endorgan damage. Her renal function is normal. Her troponin is negative. Patient has a heart score of 4. She will be admitted to the hospital for observation and continued telemetry monitoring. Case discussed with Dr. Maradiaga who accepted admission. Laboratory 04/27/18 04/27/18 04/27/18 00:25 00:25 00:25 WBC 6.5 RBC 4.14 Hgb 13.7 Hct 40.1 MCV 97 MCH 33.2 MCHC 34.3 RDW 14.9 H Plt Count 269 Seg Neutrophils % 63.8 Lymphocytes % 28.6 Monocytes % 5.3 Eosinophils % 1.5 Basophils % 0.8 Absolute Neutrophils 4.2 Absolute Lymphocytes 1.9 Absolute Monocytes 0.3 Absolute Eosinophils 0.1 Absolute Basophils 0.1 Sodium 141.1 Potassium 3.7 Chloride 105 Carbon Dioxide 27 Anion Gap 9 BUN 14 Creatinine 0.92 Est GFR ( Amer) > 60 Est GFR (Non-Af Amer) > 60 Glucose 98 Calcium 9.2 Troponin I < 0.012 Chest X-Ray 04/26/18 23:22 IMPRESSION: Negative chest copyright 2011 [employer]- All Rights Reserved - Vital Signs Vital signs: Temp Pulse Resp BP Pulse Ox 98.4 F 88 157/114 H 98 04/26/18 22:19 04/26/18 22:19 04/27/18 01:17 04/26/18 22:19 - Laboratory Result Diagrams: 04/27/18 00:25 04/27/18 00:25 Laboratory results interpreted by me: 04/27/18 00:25 RDW 14.9 H - EKG Interpretation by Me Additional EKG results interpreted by me: 04/27/18 00:00 Interpreted by myself 2125: Normal sinus rhythm, rate 83, normal axis, no ectopy, T wave inversion V1- V3, no ST elevation Discharge - Discharge Clinical Impression: Elevated blood pressure reading, Abnormal EKG Chest pain Qualifiers: Chest pain type: unspecified Qualified Code(s): R07.9 - Chest pain, unspecified Condition: Stable Disposition: ADMITTED OBSERVATION Admitting Provider: Hospitalist Unit Admitted: Telemetry
[2018-04-27 00:58] LABS: ABSOLUTE BASOPHILS # (AUTO) 0.1 10^3/uL (0.0-0.2); ABSOLUTE EOSINOPHILS # (AUTO) 0.1 10^3/uL (0.0-0.6); ABSOLUTE LYMPHOCYTES (AUTO) 1.9 10^3/uL (0.5-4.7); ABSOLUTE MONOCYTES (AUTO) 0.3 10^3/uL (0.1-1.4); ABSOLUTE NEUT (AUTO) 4.2 10^3/uL (1.7-8.2); BASOPHILS % (AUTO) 0.8 % (0-2); EOSINOPHILS % (AUTO) 1.5 % (0-6); HEMATOCRIT 40.1 % (36.0-47.0); HEMOGLOBIN 13.7 g/dL (12.0-15.5); LYMPHOCYTES % (AUTO) 28.6 % (13-45); MEAN CORPUSCULAR HEMOGLOBIN 33.2 pg (27.0-33.4); MEAN CORPUSCULAR HGB CONC 34.3 g/dL (32.0-36.0); MEAN CORPUSCULAR VOLUME 97 fl (80-97); MONOCYTES % (AUTO) 5.3 % (3-13); PLATELET COUNT 269 10^3/uL (150-450); RED BLOOD COUNT 4.14 10^6/uL (3.72-5.28); RED CELL DISTRIBUTION WIDTH 14.9 % (11.5-14.0); SEGMENTED NEUTROPHILS % (AUTO) 63.8 % (42-78); TOTAL CELLS COUNTED % (AUTO) 100 %; WHITE BLOOD COUNT 6.5 10^3/uL (4.0-10.5)
[2018-04-27 01:16] LABS: ANION GAP 9 (5-19); BLOOD UREA NITROGEN 14 mg/dL (7-20); CALCIUM 9.2 mg/dL (8.4-10.2); CARBON DIOXIDE 27 mmol/L (22-30); CHLORIDE 105 mmol/L (98-107); GLUCOSE 98 mg/dL (75-110); POTASSIUM 3.7 mmol/L (3.6-5.0); SODIUM 141.1 mmol/L (137-145)
[2018-04-27] MEDS ORDERED: LORAZEPAM 0.5 MG TABLET PO ONE (02:34)
[2018-04-27] MEDS ORDERED: ONDANSETRON 4 MG TAB.RAPDIS PO PRN (02:58)
[2018-04-27] MEDS ORDERED: ONDANSETRON HCL INJ/PF 4 MG/2 ML SDV IV PRN (02:58)
[2018-04-27] MEDS ORDERED: MAGNESIUM HYDROXIDE SUSP 30 ML UDCUP PO PRN (02:58)
[2018-04-27] MEDS ORDERED: MAG HYDROX/AL HYDROX/SIMETH SUSP 30 ML UDCUP PO PRN (02:58)
[2018-04-27] MEDS ORDERED: HYDRALAZINE HCL INJ/PF 20 MG/1 ML SDV IV PRN (03:04)
[2018-04-27] MEDS ORDERED: ACETAMINOPHEN 325 MG TABLET PO PRN (03:04)
[2018-04-27] MEDS ORDERED: MORPHINE SULFATE 10 MG/ML INJ IV PRN ×3 (03:04)
[2018-04-27] MEDS ORDERED: ACETAMINOPHEN 650 MG SUPP.RECT PR PRN (03:04)
[2018-04-27] MEDS ORDERED: NITROGLYCERIN 0.4 MG/TAB 25 TAB/BOTTLE SL PRN (03:04)
[2018-04-27] MEDS ORDERED: NICOTINE 21 MG/24 HR PATCH.TD24 TD PRN (03:04)
[2018-04-27] MEDS ORDERED: METOPROLOL SUCCINATE 50 MG TAB.SR.24H PO ONE (03:05)
[2018-04-27 03:48] LABS: CHOLESTEROL 173.57 mg/dL (0-200); TRIGLYCERIDES 138 mg/dL (<150)
[2018-04-27 03:59] LABS: DIRECT LDL 77 mg/dL (<100)
[2018-04-27 04:00] LABS: CREATINE KINASE MB 2.64 ng/mL (<4.55)
[2018-04-27 04:01] LABS: TROPONIN I < 0.012 ng/mL
--- NOTE | 2018-04-27 05:53 | PDOC H&P ---
History of Present Illness Admission Date/PCP: 04/27/18 02:27 Patient complains of: Chest discomfort History of Present Illness: HONG FERRIS is a 27 year old female who presented to the emergency room with a 6 month history of gradually worsening, intermittent chest tightness. She admits to mild to moderate nonradiating, substernal chest tightness (pre ssure) lasting for a few hours and resolving spontaneously accompanied by mild to moderate dyspnea worsened by exertion. These episodes have increased in intensity but not in frequency or duration over the last few days. She has not identified any aggravating or ameliorating factors for her chest tightness. She does admit to a long family history of cardiac disease with her mother having severe coronary artery disease and her first heart attack in her early 30s. She additionally has risk factors of hypertension for which she has not been taking her medication and she smokes cigarettes. In the emergency room she was found to have negative cardiac enzymes and an EKG that showed no evidence of ischemia or injury to her myocardium. She was also found to have uncontrolled hypertension and required multiple doses of intravenous hydralazine to bring it under control. With her history of chest tightness and uncontrolled hypertension the patient was admitted to observation status to initiate antihypertensive therapy and obtain serial cardiac enzymes to be certain that she has not had any cardiac injury. Past Medical History Cardiac Medical History: Reports: Hypertension Denies: DVT, Hyperlipidema, Pulmonary Embolism Pulmonary Medical History: Denies: Asthma, Chronic Obstructive Pulmonary Disease (COPD), Intubation, Respiratory Failure EENT Medical History: Reports: None Neurological Medical History: Denies: Migraine, Seizures Endocrine Medical History: Reports: Obesity Denies: Diabetes Mellitus Type 1, Diabetes Mellitus Type 2, Hyperthyroidism, Hypothyroidism Renal/ Medical History: Denies: Chronic Kidney Disease, Nephrolithiasis Malignancy Medical History: Reports: None GI Medical History: Denies: Cirrhosis, Hepatitis Musculoskeltal Medical History: Denies: Arthritis, Gout Skin Medical History: Denies: Eczema, Psoriasis Psychiatric Medical History: Reports: Depression, Tobacco Dependency Denies: Alcohol Dependency, Substance Abuse Traumatic Medical History: Reports: None Hematology: Denies: Anemia, Bleeding Tendencies Infectious Medical History: Reports: None Past Surgical History Past Surgical History: Reports: Section, Tubal Ligation Social History Information Source: Patient Lives with: Family Smoking Status: Current Every Day Smoker Frequency of Alcohol Use: None Hx Recreational Drug Use: No Drugs: None Hx Prescription Drug Abuse: No - Advance Directive Resuscitation Status: Full Code Surrogate healthcare decision maker:: Spouse Family History Family History: CAD, Hypertension Parental Family History Reviewed: Yes Children Family History Reviewed: No Sibling(s) Family History Reviewed.: Yes Medication/Allergy Home Medications: No Home Medications 04/27/18 Allergies/Adverse Reactions: No Known Allergies Allergy (Verified 04/25/17 15:57) Review of Systems Constitutional: ABSENT: chills, fever(s) Eyes: ABSENT: visual disturbances, other - Ocular pain Ears: ABSENT: hearing changes, other - Ear pain Nose, Mouth, and Throat: ABSENT: mouth pain, sore throat Cardiovascular: PRESENT: chest pain - Tightness/pressure, dyspnea on exertion. ABSENT: edema, orthropnea, palpitations Respiratory: PRESENT: dyspnea. ABSENT: cough, hemoptysis Gastrointestinal: ABSENT: abdominal pain, constipation, diarrhea, nausea, vomiting Genitourinary: ABSENT: dysuria, hematuria Musculoskeletal: ABSENT: back pain, joint swelling Integumentary: ABSENT: pruritus, rash Neurological: ABSENT: confusion, convulsions, memory loss Psychiatric: ABSENT: anxiety, depression Endocrine: ABSENT: cold intolerance, heat intolerance Hematologic/Lymphatic: ABSENT: easy bleeding, easy bruising Physical Exam Vital Signs: Temp Pulse Resp BP Pulse Ox 98.4 F 88 18 153/101 H 97 04/26/18 22:19 04/26/18 22:19 04/27/18 03:01 04/27/18 03:01 04/27/18 03:01 Intake & Output 04/25/18 04/26/18 04/27/18 23:59 23:59 23:59 Weight 75.4 kg General appearance: PRESENT: no acute distress, cooperative, obese Head exam: PRESENT: atraumatic, normocephalic Eye exam: PRESENT: conjunctiva pink, EOMI. ABSENT: scleral icterus Ear exam: PRESENT: normal external ear exam. ABSENT: bleeding, drainage Mouth exam: PRESENT: dry mucosa, neck supple Neck exam: ABSENT: JVD, thyromegaly, tracheal deviation Respiratory exam: PRESENT: clear to auscultation ina, symmetrical, unlabored Cardiovascular exam: PRESENT: RRR. ABSENT: clicks, diastolic murmur, gallop, rubs, systolic murmur Pulses: PRESENT: normal radial pulses, normal dorsalis pedis pul Vascular exam: PRESENT: normal capillary refill. ABSENT: pallor GI/Abdominal exam: PRESENT: normal bowel sounds, soft Rectal exam: PRESENT: deferred Extremities exam: ABSENT: joint swelling, pedal edema Musculoskeletal exam: ABSENT: deformity, dislocation Neurological exam: PRESENT: alert, oriented to person, oriented to place, oriented to time, oriented to situation, CN II-XII grossly intact. ABSENT: motor sensory deficit Psychiatric exam: PRESENT: appropriate affect, normal mood Skin exam: PRESENT: dry, intact, warm. ABSENT: jaundice, rash, urticaria Results Laboratory Results: 04/27/18 00:25 04/27/18 00:25 04/27/18 04/27/18 00:25 00:25 WBC 6.5 RBC 4.14 Hgb 13.7 Hct 40.1 MCV 97 MCH 33.2 MCHC 34.3 RDW 14.9 H Plt Count 269 Seg Neutrophils % 63.8 Lymphocytes % 28.6 Monocytes % 5.3 Eosinophils % 1.5 Basophils % 0.8 Absolute Neutrophils 4.2 Absolute Lymphocytes 1.9 Absolute Monocytes 0.3 Absolute Eosinophils 0.1 Absolute Basophils 0.1 Sodium 141.1 Potassium 3.7 Chloride 105 Carbon Dioxide 27 Anion Gap 9 BUN 14 Creatinine 0.92 Est GFR ( Amer) > 60 Est GFR (Non-Af Amer) > 60 Glucose 98 Calcium 9.2 04/27/18 00:25 Troponin I < 0.012 Impressions: Chest X-Ray 04/26/18 23:22 IMPRESSION: Negative chest copyright 2011 [employer]- All Rights Reserved Assessment & Plan - Diagnosis (1) Chest pain Qualifiers: Chest pain type: unspecified Qualified Code(s): R07.9 - Chest pain, unspecified Is this a current diagnosis for this admission?: Yes Plan: 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 (2) Hypertension Qualifiers: Hypertension type: essential hypertension Qualified Code(s): I10 - Essential (primary) hypertension Is this a current diagnosis for this admission?: Yes Plan: Patient will be initiated on metoprolol succinate therapy and serially repeated vital signs will be used to assess the immediate efficacy of treatment. IV hydralazine will be used on as-needed basis for additional antihypertensive therapy. (3) Tobacco use disorder, moderate, dependence Is this a current diagnosis for this admission?: Yes Plan: Patient is advised to stop smoking she will be provided with a nicotine replacement patch if she desires and smoking cessation counseling is given. (4) Obesity (BMI 30.0-34.9) Is this a current diagnosis for this admission?: Yes Plan: Patient will be for the opportunity to discuss a weight loss diet with the internet designer if this services available on the weekend. - Time Time Spent: 30 to 50 Minutes Critical Time spent with patient: Less than 15 minutes Medications reviewed and adjusted accordingly: Yes Anticipated discharge: Home Within: within 48 hours - Inpatient Certification Based on my medical assessment, after consideration of the patient's comor bidities, presenting symptoms, or acuity I expect that the services needed warrant INPATIENT care.: No I certify that my determination is in accordance with my understanding of Medicare's requirements for reasonable and necessary INPATIENT services [42 CFR 412.3e].: No Medical Necessity: Need Close Monitoring Due to Risk of Patient Decompensation, Need For Continuous Telemetry Monitoring
[2018-04-27] MEDS ORDERED: CLONAZEPAM 1 MG TABLET PO PRN (06:02)
--- NOTE | 2018-04-27 08:53 | EKG REPORT ---
SEVERITY:- BORDERLINE ECG - SINUS RHYTHM BORDERLINE T ABNORMALITIES, ANTERIOR LEADS : Confirmed by: Mariela Diaz 27-Apr-2018 08:53:11
--- NOTE | 2018-04-27 08:53 | EKG REPORT ---
SEVERITY:- NORMAL ECG - SINUS RHYTHM : Confirmed by: Mariela Diaz 27-Apr-2018 08:53:16
[2018-04-27 10:36] LABS: TROPONIN I < 0.012 ng/mL
[2018-04-27] MEDS: METOPROLOL SUCCINATE 50 MG TAB.SR.24H PO SCH (11:51)
[2018-04-27] MEDS: FAMOTIDINE 20 MG TABLET PO SCH ×2 (11:54→22:10)
[2018-04-27] MEDS: DOCUSATE SODIUM 100 MG CAPSULE PO SCH ×2 (11:54→18:38)
[2018-04-27] MEDS: FONDAPARINUX SODIUM INJ 2.5 MG/0.5 ML DISP.SYRIN SUBCUT SCH (12:00)
[2018-04-27 15:47] LABS: CREATINE KINASE MB 1.21 ng/mL (<4.55)
[2018-04-27 15:52] LABS: TROPONIN I < 0.012 ng/mL
[2018-04-27] MEDS: IBUPROFEN SUSP 20 MG/1 ML 118 ML PO PRN (20:59)
--- NOTE | 2018-04-27 23:45 | EKG REPORT ---
SEVERITY:- NORMAL ECG - SINUS RHYTHM : Confirmed by: Mariela Diaz 27-Apr-2018 23:44:38
--- NOTE | 2018-04-27 23:45 | EKG REPORT ---
SEVERITY:- NORMAL ECG - SINUS RHYTHM : Confirmed by: Mariela Diaz 27-Apr-2018 23:44:33
[2018-04-28] MEDS: FONDAPARINUX SODIUM INJ 2.5 MG/0.5 ML DISP.SYRIN SUBCUT SCH (09:16)
--- NOTE | 2018-04-28 09:26 | Physician Advisory Note ---
Physician Advisor ProgressNote .: Pursuant to the plan for Mendel Mancia, I have reviewed the medical record for this patient. Physician Advisor Statement: Please consider documenting, if you agree: 1. "Hypertensive Urgency" (implies BP >180 syst or 120 diast, needs urgent tx, but no assoc'd sx) or "Hypertensive Emergency, evidenced by CP/JOHNSON/..." (as above but ALSO has (+) symptoms &/or end-organ effects due to severe HTN) Status: Please document explicitly any ongoing clinical issues/attending concerns that kept pt from being safe for d/c on 12/30 PM - & then may change to Inpatient status. - However, if pt was kept 12/30 PM for logistical reasons (attending too busy w/other pts to come back & d/c this pt, ...) or pt convenience reasons, Inpatie nt status would not be appropriate. Thanks! CK
[2018-04-28] MEDS ORDERED: LISINOPRIL 10 MG TABLET PO SCH (10:00)
[2018-04-28] MEDS: METOPROLOL SUCCINATE 50 MG TAB.SR.24H PO SCH ×2 (11:03→11:14)
[2018-04-28] MEDS: DOCUSATE SODIUM 100 MG CAPSULE PO SCH (11:03)
[2018-04-28] MEDS: FAMOTIDINE 20 MG TABLET PO SCH (11:03)
[2018-04-28] MEDS: IBUPROFEN SUSP 20 MG/1 ML 118 ML PO PRN (11:08)
[2018-04-28 12:36] VITALS: BP 131/81
--- NOTE | 2018-04-28 17:05 | PDOC DISCHARGE SUMMARY ---
General - Admit/Disc Date/PCP Admission Date/Primary Care Provider: 04/27/18 02:27 Discharge Date: 04/28/18 - Discharge Diagnosis (1) Hypertensive urgency Is this a current diagnosis for this admission?: Yes Summary: Hypertensive and had a headache when she came in. Her blood pressures trended down and give her some as needed hydralazine. Even after headache resolved, she still had some high blood pressures and so we decided to start her on some lisinopril. She had already been started on metoprolol, and the combination did a good job bringing her blood pressure under control. She was provided with prescription for both of these. Her labs and examination were reassuring she was discharged home in good condition. - Additional Information Resuscitation Status: Full Code Discharge Diet: Cardiac Discharge Activity: Activity As Tolerated Prescriptions: Lisinopril [Prinivil 10 mg Tablet] 10 mg PO DAILY #30 tablet Metoprolol Succinate [Toprol Xl 50 mg Tab.sr] 50 mg PO DAILY #30 tab.sr.24h Home Medications: Lisinopril [Prinivil 10 mg Tablet] 10 mg PO DAILY #30 tablet 04/28/18 Metoprolol Succinate [Toprol Xl 50 mg Tab.sr] 50 mg PO DAILY #30 tab.sr.24h 04/28/18 History of Present Illness History of Present Illness: HONG FERRIS is a 27 year old female who presented to the emergency room with a 6 month history of gradually worsening, intermittent chest tightness. She admits to mild to moderate nonradiating, substernal chest tightness (pressure) lasting for a few hours and resolving spontaneously accompanied by mild to moderate dyspnea worsened by exertion. These episodes have increased in intensity but not in frequency or duration over the last few days. She has not identified any aggravating or ameliorating factors for her chest tightness. She does admit to a long family history of cardiac disease with her mother having severe coronary artery disease and her first heart attack in her early 30s. She additionally has risk factors of hypertension for which she has not been taking her medication and she smokes cigarettes. In the emergency room she was found to have negative cardiac enzymes and an EKG that showed no evidence of ischemia or injury to her myocardium. She was also found to have uncontrolled hypertension and required multiple doses of intravenous hydralazine to bring it under control. With her history of chest tightness and uncontrolled hypertension the patient was admitted to observation status to initiate antihypertensive therapy and obtain serial cardiac enzymes to be certain that she has not had any cardiac injury. Hospital Course Hospital Course: She was given some ibuprofen and her headache improved. Her blood pressures remain elevated but not as high as they were when she came in. He started on some metoprolol initially when she was admitted and this helps some but not enou gh, so some lisinopril was added and she had excellent blood pressure control afterwards. She was provided with prescriptions for both of these. She does not have a memory care provider but was encouraged to get one. Her labs and examination were reassuring she was discharged home in good condition. Physical Exam Vital Signs: Temp Pulse Resp BP Pulse Ox 97.4 F 82 12 131/81 H 100 04/28/18 15:23 04/28/18 15:23 04/28/18 15:23 04/28/18 15:23 04/28/18 15:23 Intake & Output 04/27/18 04/28/18 04/29/18 06:59 06:59 06:59 Intake Total 1250 Balance 1250 Weight 75.3 kg 79.6 kg General appearance: PRESENT: no acute distress, cooperative, obese Respiratory exam: PRESENT: clear to auscultation ina, symmetrical, unlabored. ABSENT: accessory muscle use, rales, rhonchi, tachypnea, wheezes Cardiovascular exam: PRESENT: RRR, +S1, +S2 Vascular exam: PRESENT: normal capillary refill GI/Abdominal exam: PRESENT: normal bowel sounds, soft. ABSENT: distended, guarding, rebound, tenderness Extremities exam: ABSENT: clubbing, pedal edema Musculoskeletal exam: PRESENT: ambulatory, normal inspection. ABSENT: deformity Neurological exam: PRESENT: alert, awake, oriented to person, oriented to place, oriented to time, oriented to situation Psychiatric exam: PRESENT: appropriate affect, normal mood Skin exam: PRESENT: dry, warm Results Laboratory Results: 04/27/18 00:25 04/27/18 00:25 04/28/18 04/28/18 04:49 04:49 Magnesium 2.0 TSH 2.81 04/27/18 04/27/18 04/27/18 00:25 00:25 00:25 Creatine Kinase 459 H CK-MB (CK-2) 2.64 Troponin I < 0.012 < 0.012 04/27/18 04/27/18 04/27/18 09:26 09:26 15:09 Creatine Kinase 350 H 284 H CK-MB (CK-2) 1.40 Troponin I < 0.012 04/27/18 15:09 Creatine Kinase CK-MB (CK-2) 1.21 Troponin I < 0.012 Impressions: Chest X-Ray 04/26/18 23:22 IMPRESSION: Negative chest copyright 2010 [employer]- All Rights Reserved Qualifiers - * PATIENT BEING DISCHARGED WITH ANY OF THE FOLLOWING DIAGNOSIS: No
== END 2018-04-28 16:17 | disposition home or self-care (01) ==
LOC: ER 21:03 → EH 04-27 02:27 → 4S 04-27 03:25
PROVIDERS: ADMIT Emergency Medicine; ATTEND Emergency Medicine
DX: I16.0 Hypertensive urgency (principal); R51 Headache; R07.89 Other chest pain; F17.210 Nicotine dependence, cigarettes, uncomplicated; R06.09 Other forms of dyspnea; E66.9 Obesity, unspecified; F41.9 Anxiety disorder, unspecified; R94.31 Abnormal electrocardiogram [ECG] [EKG]; Z68.34 Body mass index [BMI] 34.0-34.9, adult; Z79.899 Other long term (current) drug therapy; Z91.14 Patient's other noncompliance with medication regimen; Z82.49 Family history of ischemic heart disease and other diseases of the circulatory system
CPT/HCPCS: 93005 ×2; 96376; 99291; 96374; 36415 ×2; 82553; 82550; 83735; 84443; 85025; 80048; 84484; 83036; 80061; 71045; 93010 ×2; G0378 ×2; J3490 ×10; J0360 ×2; J2270; J1652

== ENCOUNTER 2019-02-01 05:59 | Emergency (ER) | payer SELFPAY ==
[2019-02-01] MEDS ORDERED: LISINOPRIL 10 MG TABLET PO ONE (07:13)
[2019-02-01 08:27] VITALS: BP 182/107
--- NOTE | 2019-02-01 08:50 | EKG REPORT ---
SEVERITY:- NORMAL ECG - SINUS RHYTHM : Confirmed by: Sivan Dsouza MD 01-Feb-2019 08:50:00
== END 2019-02-01 08:27 | disposition home or self-care (01) ==
LOC: ER 05:59
DX: Z53.21 Procedure and treatment not carried out due to patient leaving prior to being seen by health care provider (principal); R07.9 Chest pain, unspecified
CPT/HCPCS: 93005; 93010; 99284